=== PATIENT | male | born 1945 ===

== ENCOUNTER 2019-07-28 06:15 | Day surgery (SDC) | payer OTHER ==
[~2019-07-28 06:15] MED LIST: LOTREL 5-10 MG1 CAP PO; NAMENDA10 MG PO; SYNTHROID50 MCG PO
== END 2019-07-28 14:00 | disposition home or self-care (01) ==
LOC: CIR.AMB 06:15 → ADM 07:15 → CIR.AMB 07:15
DX: M65.841 Other synovitis and tenosynovitis, right hand (principal)